=== PATIENT | male | born 1965 | race African-American/Black ===

== ENCOUNTER → 2023-11-17 06:29 | Day surgery (SDC) | payer OTHER, SELFPAY | LOC: GI 06:29 | PROVIDERS: ATTENDING PHYSICIAN Internal Medicine Gastroenterology | DX: Z12.11 Encounter for screening for malignant neoplasm of colon (principal); D12.2 Benign neoplasm of ascending colon; D12.3 Benign neoplasm of transverse colon; D12.4 Benign neoplasm of descending colon; D12.5 Benign neoplasm of sigmoid colon; K57.30 Diverticulosis of large intestine without perforation or abscess without bleeding; K64.8 Other hemorrhoids; Z86.010 Personal history of colon polyps | CPT/HCPCS: 45385; 88305 ==

== ENCOUNTER → 2024-04-25 09:18 | Outpatient (REF) | payer OTHER, SELFPAY | LOC: PAVMRI 09:18 | PROVIDERS: ATTENDING PHYSICIAN Otolaryngology; FAMILY PHYSICIAN Family Medicine | DX: R42 Dizziness and giddiness (principal) | CPT/HCPCS: 70551 ==

== ENCOUNTER 2024-05-11 06:16 | Inpatient (IN) | payer OTHER, SELFPAY ==
[2024-05-03 08:53] LABS: Hematocrit 39.1 % (39.0-52.0); Mean Corp Hgb Conc. 33.2 g/dL (33.0-37.0); Mean Platelet Volume 11.2 fL (7.4-10.4); Platelet Count 186 10^3/uL (130-400); Red Blood Cell Count 5.21 10^6/uL (4.70-6.10); Red Cell Dist. Width 14.7 % (11.5-14.5); White Blood Cell Count 4.2 10^3/uL (4.8-10.8)
[2024-05-03 09:02] LABS: INR 1.02; PT 13.4 Sec (11.4-14.6)
[2024-05-03 09:03] LABS: APTT 32.2 Sec (23.4-35.0)
[2024-05-03 09:26] VITALS: BMI 35.1
[2024-05-03 10:24] LABS: Glycohemoglobin (HgbA1c) 5.8 % (4.0-5.6)
[2024-05-03 11:27] LABS: ALT (SGPT) 27 U/L (0-50); AST (SGOT) 28 U/L (17-59); Albumin 4.2 g/dl (3.5-5.0); Alkaline Phosphatase 57 U/L (38-126); Blood Urea Nitrogen 29 mg/dl (9-20); Carbon Dioxide 23 mmol/L (22-30); Chloride 106 mmol/L (98-107); Estimated Creatinine Clearance 70 ml/min; Glucose 93 mg/dl (70-99); Potassium 4.2 mmol/L (3.5-5.1); Sodium 140 mmol/L (135-145); Total Bilirubin 0.3 mg/dl (0.2-1.3); Total Protein 6.8 g/dl (6.3-8.2); eGFR 58.26
[2024-05-03 11:57] LABS: CEA 1.86 ng/ml
[2024-05-11] VITALS (11 sets, daily range): BP systolic 128–154; BP diastolic 71–100; BMI 35.1
[2024-05-11] MEDS: ENTEREG 12 MG PO (07:00)
[2024-05-11] MEDS: TYLENOL 1000 MG PO (07:00)
[2024-05-11] MEDS: HEPARIN 5000 UNITS SC (07:13)
--- NOTE | 2024-05-11 11:31 | W.IMMPOSTOP ---
Surgical Immed Post Op Note
-
Primary Surgeon: Mario Morris MD
Dewaterer Operator: JERAMY Mistry
Pre-op Diagnosis: Recurrent sigmoid diverticulitis
Post-op Diagnosis: Same
Procedure Performed: Robotic sigmoid colectomy with takedown of splenic flexure and intracorporeal anastomosis
Anesthesia Type: GET
Specimen / Cultures: Sigmoid colon (suture is proximal)
Estimated Blood Loss: 15cc
Complications: None
Operative Findings: Chronic sigmoid diverticulitis
28mm EEA
Normal leak test
Patient's updated.
--- NOTE | 2024-05-11 12:59 | PTCARENOTE ---
Patient received from PACU in bed; IVF infusing; Surgical site assessed with TELEPHONE ORDER DISPATCHER, four laparoscopic sites open to air with glue; Indwelling urinary catheter draining clear yellow urine; Patient states pain is mild but tolerable; Patient denies
nausea/vomiting at this time; Patient on room air with oxygen saturation of 99%; Patient oriented to room and unit; Call stanley within reach; Bed in lowest position, wheels locked; Assessment ongoing
[2024-05-11] MEDS: NORMOSOL-R/PLASMALYTE-A 1000 IV ×2 (13:34→23:49)
[2024-05-11] MEDS: TYLENOL PO ×2 (13:40→23:46)
[2024-05-11] MEDS: TYLENOL 650 MG PO ×2 (16:04→20:30)
[2024-05-11] MEDS: TORADOL 15 MG IV ×2 (16:04→22:21)
[2024-05-11] MEDS: ZESTRIL 40 MG PO (18:29)
[2024-05-11] MEDS: PROTONIX 20 MG PO (21:15)
[2024-05-11] MEDS: MELATONIN 5 MG PO (21:15)
[2024-05-12 03:24] VITALS: BP 136/88
[2024-05-12] MEDS: TYLENOL 650 MG PO ×5 (03:57→22:28)
[2024-05-12] MEDS: TORADOL 15 MG IV (04:00)
[2024-05-12 06:00] VITALS: BMI 33.8
[2024-05-12 07:27] LABS: % Basophils 0.1 % (0-2); % Immature Granulocytes 0.5 % (0-0.5); % Monocytes 9.7 % (1.7-9.3); % Neutrophils 83.7 % (42.2-75.2); Absolute Immature Granulocytes 0.1 10^3/uL (0-0.05); Absolute Lymphocytes 0.7 10^3/uL (1.2-3.4); Absolute Monocytes 1.1 10^3/uL (0.1-0.6); Absolute Neutrophils 9.3 10^3/uL (1.4-6.5); Hematocrit 38.5 % (39.0-52.0); Hemoglobin 13.1 g/dL (13.0-18.0); Mean Corpuscular Hgb 25.8 pg (27.0-31.0); Mean Corpuscular Volume 75.8 fL (80.0-94.0); Mean Platelet Volume 10.6 fL (7.4-10.4); Nucleated Red Blood Cells % 0 % (-); Platelet Count 176 10^3/uL (130-400); Red Blood Cell Count 5.08 10^6/uL (4.70-6.10); Red Cell Dist. Width 14.5 % (11.5-14.5); White Blood Cell Count 11.1 10^3/uL (4.8-10.8)
[2024-05-12] MEDS: ZYLOPRIM 100 MG PO (07:45)
[2024-05-12] MEDS: LIPITOR 10 MG PO (07:45)
[2024-05-12] MEDS: SYNTHROID 137 MCG PO (07:46)
[2024-05-12] MEDS: ENTEREG 12 MG PO ×2 (07:46→20:49)
[2024-05-12 07:56] LABS: Blood Urea Nitrogen 18 mg/dl (9-20); Calcium 8.6 mg/dl (8.4-10.2); Carbon Dioxide 21 mmol/L (22-30); Chloride 107 mmol/L (98-107); Estimated Creatinine Clearance 68 ml/min; Glucose 121 mg/dl (70-99); Potassium 4.7 mmol/L (3.5-5.1); Sodium 140 mmol/L (135-145); eGFR 58.26
[2024-05-12 08:11] VITALS: BP 128/87
[2024-05-12 11:43] VITALS: BP 156/95
--- NOTE | 2024-05-12 13:23 | W.PN.CRS1 ---
Today's Communication / Plan
-
fulls
d/c calles
lovenox
trend labs
Assessment/Plan
-
POD#1 Robotic sigmoid colectomy with takedown of splenic flexure and intracorporeal anastomosis
-WBC 11.1, elevated as expected post op
-Vitals normal
-Advance diet to fulls
-D/C calles
-D/C toradol given creatinine 1.4 (1.1-1.3 baseline)
-OR pathology pending
-OKay to shower
-OOB as tolerated
-Start lovenox for dvt prophylaxis, TEDs/SCDS in place
Subjective Data
Procedure
11- Robotic sigmoid colectomy with takedown of splenic flexure and intracorporeal anastomosis
Subjective Data
Date of Service: May 12, 2024
Patient states he has no nausea or vomiting. He has flatus/bowel movements. He would like his calles out.
Objective Data
-
Vital Signs
Temp Pulse Resp BP Pulse Ox
98.9 F 59 18 156/95 98
05/12/24 11:43 05/12/24 11:43 05/12/24 11:43 05/12/24 11:43 05/12/24 11:43
Intake & Output
05/11/24 05/12/24 05/13/24
06:59 06:59 05:59
Intake Total 2640 / 2640
Output Total 2250 / 2250
Balance 390 / 390
Intake:
Oral fluids 1979 / 1979
IV fluids (Total) 660 / 660
Normosol 100 / 100
Output:
Urine, Calles 2250 / 2250
Lab Results
05/12/24 06:42
05/12/24 06:42
Physical Exam
-
General: No Acute Distress and AOx3
Abdomen: Soft, Non Distended and Non Tender
Skin: Warm and Dry
Incision: Clear, Dry, Intact
[2024-05-12] MEDS: DILAUDID 0.5 MG IV (13:51)
[2024-05-12] MEDS: NORMOSOL-R/PLASMALYTE-A IV (14:00)
[2024-05-12 16:01] VITALS: BP 143/88
--- NOTE | 2024-05-12 16:09 | CM ---
Initial assessment completed with pt.
Pt is indep at baseline and lives with his in a multi level home.
No hx of VN/SNF/DME
PCP Sadaf Lindsey
[facility].
PLAN; DC to home with no needs anticipated
[2024-05-12] MEDS: LOVENOX 40 MG SC (18:22)
[2024-05-12] MEDS: ROXICODONE 5 MG PO ×2 (18:22→22:27)
[2024-05-12] MEDS: PROTONIX 20 MG PO (22:28)
[2024-05-12 23:08] VITALS: BP 143/77
[2024-05-13] MEDS: TYLENOL PO (00:30)
[2024-05-13] MEDS: TYLENOL 650 MG PO ×3 (04:45→13:36)
[2024-05-13] MEDS: ROXICODONE 5 MG PO (04:46)
[2024-05-13] MEDS: SYNTHROID 137 MCG PO (04:46)
[2024-05-13 06:00] VITALS: BMI 34.0
[2024-05-13 06:40] LABS: % Basophils 0.3 % (0-2); % Eosinophils 3.1 % (0-6); % Immature Granulocytes 0.4 % (0-0.5); % Lymphocytes 22.3 % (20.5-51.1); % Monocytes 12.9 % (1.7-9.3); Absolute Eosinophils 0.2 10^3/uL (0-0.7); Absolute Lymphocytes 1.5 10^3/uL (1.2-3.4); Absolute Monocytes 0.9 10^3/uL (0.1-0.6); Absolute Neutrophils 4.1 10^3/uL (1.4-6.5); Hematocrit 37.7 % (39.0-52.0); Hemoglobin 12.7 g/dL (13.0-18.0); Mean Corp Hgb Conc. 33.7 g/dL (33.0-37.0); Mean Corpuscular Hgb 25.6 pg (27.0-31.0); Mean Platelet Volume 9.6 fL (7.4-10.4); Nucleated Red Blood Cells % 0 % (-); Platelet Count 156 10^3/uL (130-400); Red Blood Cell Count 4.96 10^6/uL (4.70-6.10); Red Cell Dist. Width 14.8 % (11.5-14.5); White Blood Cell Count 6.7 10^3/uL (4.8-10.8)
[2024-05-13 06:50] LABS: Blood Urea Nitrogen 19 mg/dl (9-20); Calcium 8.7 mg/dl (8.4-10.2); Carbon Dioxide 23 mmol/L (22-30); Chloride 107 mmol/L (98-107); Estimated Creatinine Clearance 74 ml/min; Glucose 97 mg/dl (70-99); Potassium 4.4 mmol/L (3.5-5.1); Sodium 141 mmol/L (135-145); eGFR > 60.00
[2024-05-13 07:45] VITALS: BP 112/74
[2024-05-13] MEDS: ZYLOPRIM 100 MG PO (09:36)
[2024-05-13] MEDS: ENTEREG 12 MG PO (09:37)
[2024-05-13] MEDS: LIPITOR 10 MG PO (09:37)
--- NOTE | 2024-05-13 10:58 | W.PN.CRS1 ---
Today's Communication / Plan
-
low residue
discharge
Assessment/Plan
-
POD#2 Robotic sigmoid colectomy with takedown of splenic flexure and intracorporeal anastomosis
-WBC normalized.
-Vitals normal
-Advance diet to low residue.
-Creatinine 1.3 (baseline)
-OR pathology pending
-OKay to shower
-OOB as tolerated
-Lovenox for dvt prophylaxis, TEDs/SCDS in place
-Okay for discharge later today if tolerates low residue diet. All discharge instructions discussed with patient and family.
Subjective Data
Procedure
05/11- Robotic sigmoid colectomy with takedown of splenic flexure and intracorporeal anastomosis
Subjective Data
Date of Service: May 13, 2024
Patient states he feels well. He has no complaints. He denies nausea or vomiting. He is hungry.
Objective Data
-
Vital Signs
Temp Pulse Resp BP Pulse Ox
98.3 F 58 16 112/74 99
05/13/24 07:45 05/13/24 07:45 05/13/24 07:45 05/13/24 07:45 05/13/24 07:45
Intake & Output
05/12/24 05/13/24 05/14/24
07:59 06:59 06:59
Intake Total
Output Total
Balance
Intake:
Oral fluids
IV fluids (Total)
Normosol
Output:
Urine, Rosales
Urine, Voided
Other:
Number of approximated MODERATE
amounts of urine
How many times incontinent
MODERATE amount urine
Lab Results
05/13/24 06:25
05/13/24 06:25
Physical Exam
-
General: No Acute Distress and AOx3
Abdomen: Soft, Non Distended and Non Tender
Skin: Warm and Dry
Incision: Clear, Dry, Intact
--- NOTE | 2024-05-13 11:04 | W.DS.TRANS ---
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
-
Discharge Instructions:
Discharge Diagnosis/Procedures Robotic sigmoid colectomy with takedown of
splenic flexure and intracorporeal anastomosis
Diet Low Residue
Activity No strenuous activity
Additional Activity No lifting over 10lbs (gallon of milk)
Driving Restrictions No driving for 1 week
Bathing Restrictions OK to Shower
Wound Care Allow glue to naturally fall off. Do not pick at
incisions.
Instructions: Low Fiber Diet
Stand-Alone Forms:
Changes to Home Medications: Yes
Discharge Medications:
DC Medications w/original date entered in [facility]
levothyroxine 137 mcg tablet (Synthroid) 137 mcg PO DAILY Thyroid 03/14/21
allopurinol 100 mg tablet 100 mg PO DAILY Gout 05/04/24
atorvastatin 10 mg tablet 10 mg PO DAILY High Cholesterol 05/04/24
cetirizine 10 mg tablet (Zyrtec) 10 mg PO DAILY PRN allergies 05/04/24
colchicine 0.6 mg tablet 0.6 mg PO DAILY PRN gout 05/04/24
fluticasone propionate 50 mcg/actuation nasal spray,suspension 1 spray intranasal BID PRN allergies 05/04/24
pantoprazole 20 mg tablet,delayed release 20 mg PO HS GERD 05/04/24
prednisone 50 mg tablet 50 mg PO PRN PRN inflammation 05/04/24
lisinopril 40 mg tablet 40 mg PO DAILY Blood Pressure 05/11/24
tramadol 25 mg tablet 25 mg PO Q6H PRN Pain #20 tabs 05/13/24
Home Medication Changes
tramadol 25 mg tablet 25 mg PO Q6H PRN Pain #20 tabs 05/13/24
Pending Results: Yes
Additional Pending Results:
pathology
[2024-05-13 13:08] VITALS: BP 107/63
[2024-05-13] MEDS: ZYRTEC 10 MG PO (13:38)
== END 2024-05-13 14:39 | disposition home or self-care (01) | DRG 331 ==
LOC: 2 SOUTH 06:16
PROVIDERS: Physician Assistant; ADMITTING PHYSICIAN Surgery; FAMILY PHYSICIAN Family Medicine
PROC: 0DTN4ZZ Resection of Sigmoid Colon, Percutaneous Endoscopic Approach (ICD-10-PCS; 2024-05-11)
DX: K57.32 Diverticulitis of large intestine without perforation or abscess without bleeding (principal)
CPT/HCPCS: 88307; 80048; 80053; 82378; 83036; 85025; 85027; 85610; 85730; 86850; 86900; 86901; 93005; J1335

== ENCOUNTER 2025-01-15 13:52 | Emergency (ER) | payer OTHER, SELFPAY ==
[2025-01-15 14:04] VITALS: BP 161/93
[2025-01-15 14:52] LABS: Hematocrit 39.1 % (39.0-52.0); Hemoglobin 12.7 g/dL (13.0-18.0); Mean Corp Hgb Conc. 32.5 g/dL (33.0-37.0); Mean Corpuscular Volume 77.6 fL (80.0-94.0); Nucleated Red Blood Cells % 0 % (-); Platelet Count 174 10^3/uL (130-400); Red Cell Dist. Width 15.6 % (11.5-14.5)
[2025-01-15 14:58] LABS: ALT (SGPT) 22 U/L (0-50); AST (SGOT) 25 U/L (17-59); Albumin 4.2 g/dl (3.5-5.0); Alkaline Phosphatase 55 U/L (38-126); Blood Urea Nitrogen 25 mg/dl (9-20); Calcium 8.9 mg/dl (8.4-10.2); Carbon Dioxide 24 mmol/L (22-30); Chloride 109 mmol/L (98-107); Glucose 102 mg/dl (70-99); Lipase 99 U/L (23-300); Potassium 4.3 mmol/L (3.5-5.1); Sodium 138 mmol/L (135-145); Total Protein 6.9 g/dl (6.3-8.2); eGFR 58.26
[2025-01-15 16:22] VITALS: BP 157/100
[2025-01-15 18:00] VITALS: BP 162/107
--- NOTE | 2025-01-15 18:21 | ED.GENMED ---
History of Present Illness
General
Chief Complaint: Dizziness
Source: patient
Exam Limitations: none
Time Seen by Provider: 01/15/25 18:04
Nursing documentation reviewed up to this point in time: agreed with
History of Present Illness
History of Present Illness:
Patient is a 59-year-old male with past history of hypertension on lisinopril, vestibular migraine/vertigo sleep apnea on CPAP hyperlipidemia presents to the ER for evaluation. Patient has not had an episode of vertigo or vestibular migraine in a
while and reports he was standing near looking at his phone and felt same type of vertigo in the past but very more intense which concerned him. He also felt left-sided headache which prompted him to come to the ER.
He had no associated chest pain shortness of breath denies any recent trauma. He denies any visual disturbance. Denies any neck pain. Denies any recent chiropractor manipulation.
Patient has been worked up by neurology for his vertigo/vestibular migraine and had an MRI of without contrast in April 2024 which was negative.
Triage note reports patient had pain to left shoulder for the past several weeks. He initially did not mention this to me when asked him he reports he has some shoulder issues when he sleeps on the affected side. He denies any associated chest
pain or shortness of breath with the shoulder pain denies any trauma.
Past History
Past History
ED Past Medical History: HTN, Hypercholesterolemia, Hypothyroidism, Other (Past history of diverticulosis and diverticulitis ) and Other (Gout, BPH)
ED Past Surgical History: Urological (vasectomy)
Social History
Tobacco: Smoker (cigars, quit cigarettes 15 years ago)
Alcohol: None
Drug: None
Personal:
Living: with family
Employment: Employed
Family History
Family History: Other (Noncontributory)
Review of Systems
Review of Systems
Allergies reviewed?: Yes
All Other Systems: ROS reviewed and negative except as documented in HPI and ROS
Phy Exam
General Physical Exam
General Presentation: no apparent distress
General age: appears stated age
General Skin: warm and dry
General Habitus: normal
General Mental: alert
General Hydration: appears well hydrated
Eye Exam
Eye Exam: PERRL and EOMI
Eye Exam General: PERRL: bilateral and EOM intact: bilateral
Pupil Exam: Bilateral: round and reactive
Cardiovascular Exam
Cardiovascular Exam: regular rate/rhythm, no murmur and normal peripheral pulses
Pulmonary Exam
Pulmonary Exam: lungs clear and no respiratory distress
Neurological Exam
Neurological Exam: alert and oriented x3
Musculoskeletal Exam
Musculoskeletal Exam: full ROM
Skin Exam
Skin Exam: normal color and warm/dry
Psychiatric Exam
Psychiatric Exam: normal mood/affect
Course
Orders/Labs/Results
Orders:
Orders
01/15/25 14:08
Electrocardiogram (*1) Urgent
Reason for Study: Abdominal Pain
EKG- Treatment ONCE
01/15/25 14:19
Complete Blood Count/With Diff Urgent
Comprehensive Metabolic Panel Urgent
Lipase Urgent
01/15/25 16:23
CT Head W/o Iv Contrast Urgent
Comment:
Reason For Exam: dizziness, hypertension
01/15/25 18:35
Lisinopril [Zestril] 40 mg PO NOW STA
01/15/25 19:41
EKG [Electrocardiogram (*1)] Urgent
Reason for Study: Vertigo / Dizzy
EKG- Treatment ONCE
01/15/25 19:45
Troponin I Urgent
Abnormal Lab Results
01/15/25
14:19
WBC 4.4 L 10^3/uL
(4.8-10.8)
Hgb 12.7 L g/dL
(13.0-18.0)
MCV 77.6 L fL
(80.0-94.0)
MCH 25.2 L pg
(27.0-31.0)
MCHC 32.5 L g/dL
(33.0-37.0)
RDW 15.6 H %
(11.5-14.5)
MPV 10.9 H fL
(7.4-10.4)
Absolute Lymphs (auto) 1.1 L 10^3/uL
(1.2-3.4)
Monocytes % 12.2 H %
(1.7-9.3)
Eosinophils % 6.3 H %
(0-6)
Chloride 109 H mmol/L
(98-107)
BUN 25 H mg/dl
(9-20)
Creatinine 1.4 H mg/dL
(0.7-1.3)
Glucose 102 H mg/dl
(70-99)
01/15/25 14:19
01/15/25 14:19
Vital Signs
Initial and Last Documented VS:
Initial Vital Signs
Temp Pulse Resp BP Pulse Ox
98.5 F 55 16 161/93 98
01/15/25 14:04 01/15/25 14:04 01/15/25 14:04 01/15/25 14:04 01/15/25 14:04
Last Documented Vital Signs
Temp Pulse Resp BP Pulse Ox
98.5 F 52 16 159/95 99
01/15/25 14:04 01/15/25 19:30 01/15/25 18:00 01/15/25 20:00 01/15/25 20:00
MDM/Problems Addressed
Differential Diagnosis Includes:
Not limited to vertigo, vestibular migraine( patient with history of vestibular migraine, vertigo) less likely intracranial hemorrhage
MDM/Problems Addressed:
Patient has a history of vestibular migraine/vertigo and presented today with similar symptoms but more intense. He has not had any issues recently with vestibular migraine/vertigo until today. He did present with elevated blood pressure does
report he missed his blood pressure 2 days prior because he was traveling however is asymptomatic here in the ER well-appearing. He did see neurology for this and had a brain MRI in April 2024 which was negative.
His neurological exam is negative. he is in no acute distress here and afebrile; blood pressure elevated however patient did not take his evening lisinopril dose was given a dose here in the ER(he also missed it 2 d ago). His hemoglobin is
stable. He does have a history of renal insufficiency and has been followed by his family doctor for this.
Discussed with patient close the patient follow-up with his family doctor for reevaluation of his blood pressure and reevaluation of symptoms however patient is stable for discharge home. He has been asymptomatic here and with history of
vertigo/vestibular migraine no concerning new symptoms.
*Pulse Oximetry
SaO2: 99
Oxygen Mode of Delivery: Room air
Patient hypoxic: no (99%RA )
*Critical Care Note
Total Time (30-74mins, 75-104mins- exclusive of procedures): Not Applicable
ED Attending Note
-
Portions of this chart may have been created with voice recognition software.� Occasional wrong word or��sound alike� substitutions may have occurred due to the inherent limitations of voice recognition software.
Discharge Plan
Departure
Patient Disposition: Home (Routine Discharge)
Date of Disposition: 01/15/25
Time of Disposition: 20:25
Patient with high blood pressure during this ER visit?: Yes
Condition: Fair
Covid-19: Not Applicable
Discharge Problem:
Vertigo
Instructions: Vertigo (a Type of Dizziness) (DC), BLOOD PRESSURE
Prescriptions:
No Action
levothyroxine [Synthroid] 137 MCG tablet
137 mcg PO DAILY
cetirizine [Zyrtec] 10 mg Tablet
10 mg PO DAILY PRN (Reason: allergies)
atorvastatin 10 mg Tablet
10 mg PO DAILY
allopurinol 100 mg Tablet
100 mg PO DAILY
pantoprazole 20 mg Tablet,Delayed Release (Dr/Ec)
20 mg PO HS
colchicine 0.6 mg Tablet
0.6 mg PO DAILY PRN (Reason: gout)
fluticasone propionate 50 mcg/actuation [place],Suspension
1 spray INTRANASAL BID PRN (Reason: allergies)
prednisone 50 MG tablet
50 mg PO PRN PRN (Reason: inflammation)
lisinopril 40 mg Tablet
40 mg PO DAILY
tramadol 25 mg tablet
25 mg PO Q6H PRN (Reason: Pain) Qty: 20 0RF
Referrals:
Sadaf Lindsey MD [Family Provider, Family Practice]
Activity Restrictions/Additional Instructions:
Your symptoms are likely from your vertigo.
You cat scan was negative.
be sure to continue to take your blood pressure medicine as previously prescribed. Your blood pressure was elevated here. Please follow the family doctor for reevaluation of your blood pressure.
Interventions
Interventions:
*Risk Screen - Suicide Last Done: 01/15/25 14:04
*General Assessment Last Done: 01/15/25 18:00
*Neglect/Abuse Screening Last Done: 01/15/25 14:04
*ED- Fall Risk Assessment Last Done: 01/15/25 18:00
*ED COVID-19 Vaccine History Last Done: 01/15/25 19:24
ED- Neurological Assessment Last Done: 01/15/25 18:00
ED Swallowing Screen Last Done: 01/15/25 18:00
Discharge Date and Time
Print Language: BELIZEAN
[2025-01-15 19:01] VITALS: BP 178/98
[2025-01-15] MEDS: ZESTRIL 40 MG PO (19:30)
[2025-01-15 19:31] VITALS: BP 159/104
[2025-01-15 20:00] VITALS: BP 159/95
[2025-01-15 20:19] LABS: Troponin I < 0.012 ng/ml
== END 2025-01-15 20:46 | disposition home or self-care (01) ==
LOC: EMR 13:52
PROVIDERS: Nurse Practitioner; EMERGENCY PHYSICIAN Emergency Medicine; FAMILY PHYSICIAN Family Medicine
DX: R42 Dizziness and giddiness (principal); I10 Essential (primary) hypertension; E03.9 Hypothyroidism, unspecified; E78.00 Pure hypercholesterolemia, unspecified; G47.30 Sleep apnea, unspecified; N40.0 Benign prostatic hyperplasia without lower urinary tract symptoms; F17.200 Nicotine dependence, unspecified, uncomplicated
CPT/HCPCS: 99284; 70450; 80053; 83690; 84484; 85025; 93005

== ENCOUNTER → 2025-06-29 11:40 | Outpatient (REF) | payer OTHER, SELFPAY | LOC: RAD 11:40 | PROVIDERS: ATTENDING PHYSICIAN Family Medicine | DX: R05.1 Acute cough (principal); J45.21 Mild intermittent asthma with (acute) exacerbation; R06.02 Shortness of breath | CPT/HCPCS: 71046 ==